=== PATIENT | female | born 1995 | race Two or more races ===

== ENCOUNTER 2021-12-24 01:14 | Inpatient (IN) | payer SELFPAY ==
[~2021-12-24] VITALS: Ht 167.6 cm; Wt 75.7 kg
[2021-12-24] MEDS ORDERED: DERMOPLAST 60ML BOTTLE TOP PRN (01:45)
[2021-12-24] MEDS ORDERED: WITCH HAZEL-GLYCERIN PAD TOP PRN (01:45)
[2021-12-24] MEDS ORDERED: PHISODERM TOP SOLN 240ML BTL TOP PRN (01:45)
[2021-12-24] MEDS ORDERED: IBUPROFEN 600 MG TAB PO PRN (02:00)
[2021-12-24] MEDS ORDERED: ONDANSETRON ODT 4 MG TAB PO PRN (02:00)
[2021-12-24] MEDS ORDERED: ACETAMINOPHEN 325 MG TAB PO PRN (02:00)
[2021-12-24] MEDS ORDERED: CARBOPROST TROMETHAMINE 250 MCG/1ML VIAL IM PRN (02:00)
[2021-12-24] MEDS ORDERED: miSOPROStol 100 mcg TAB PR PRN (02:00)
[2021-12-24] MEDS ORDERED: LACT. RINGERS/OXYTOCIN 20UNITS 1,000 ML IV ONE (02:00)
[2021-12-24] MEDS ORDERED: miSOPROStol 100 mcg TAB SL PRN (02:00)
[2021-12-24] MEDS ORDERED: METHYLERGONOVINE MALEATE 0.2 MG/ML AMP IM ONE (02:00)
[2021-12-24 02:29] LABS: Alcohol, Urine < 3.0 mg/dL (0-10); Amphetamine Screen, Urine POSITIVE (NEGATIVE); Barbiturate Scree,Urine NEGATIVE (NEGATIVE); Cannabinoid Screen, Urine NEGATIVE (NEGATIVE); Opiate Scree,Urine NEGATIVE (NEGATIVE); Phencyclidine Screen, Urine NEGATIVE (NEGATIVE)
[2021-12-24 02:36] LABS: Benzodiazephine Screen, Urine NEGATIVE (NEGATIVE); Cocaine Screen, Urine NEGATIVE (NEGATIVE)
[2021-12-24 02:51] LABS: Urine Bacteria NONE SEEN /hpf (None Seen); Urine Blood 2+ /uL (Negative); Urine Mucus FEW (None Seen); Urine WBC 2 /hpf (0 - 5)
[2021-12-24 02:59] LABS: Eosinophils # (auto) 0 10 ^3/uL (0-0.8)
[2021-12-24 03:01] LABS: Basophils # (auto) 0.1 10 ^3/uL (0-0.2); Basophils % (auto) 0.4 % (0.0-2.0); Eosinophils % (auto) 0.2 % (0.0-7.0); Hematocrit 25.9 % (36.0-46.0); Hemoglobin 7.7 g/dL (12.2-16.2); Lymphocytes # (auto) 1.2 10 ^3/uL (0.4-5.4); Mean Corpuscular Hemoglobin 20.1 pg (28.0-32.0); Mean Corpuscular Hgb Conc. 29.7 g/dL (32.0-36.0); Mean Corpuscular Volume 67.7 fL (80.0-100.0); Neutrophils # (auto) 14.3 10 ^3/uL (1.6-8.6); Neutrophils % (auto) 86.4 % (37.0-80.0); Nucleated Red Blood Cells % 0.6 %; Red Blood Cells 3.83 10^6/uL (4.0-5.20); White Blood Cell 16.5 10^3/uL (4.4-10.8)
[2021-12-24 03:13] LABS: Albumin 2.6 g/dL (3.4-5.0); BUN/Creatinine Ratio 22.6; Calcium 8.4 mg/dL (8.5-10.1)
[2021-12-24 03:14] LABS: Red Cell Distribution Width 22.2 % (11.8-14.3)
[2021-12-24 03:16] LABS: Bilirubin, Total 0.4 mg/dL (0.2-1.0); Total Protein 6.4 g/dL (6.4-8.2)
[2021-12-24 03:17] VITALS: BP 133/91
[2021-12-24 03:17] LABS: INR 0.92 (0.9-1.15); Partial Thromboplastin Time 24.5 sec (23.6-33.0)
[2021-12-24] MEDS ORDERED: ceFAZolin 1GM/50ML 50 ML IV SCH (03:30)
[2021-12-24] MEDS ORDERED: SODIUM FERR GLUC 62.5MG/5ML 125 MG in SODIUM CHL 0.9% 100 ML IV ONE (04:00)
[2021-12-24 04:50] VITALS: BP 118/66
[2021-12-25 08:06] LABS: Rubella Antibodies, IgG 1.98 index (Immune >0.99)
== END 2021-12-24 06:35 | disposition left against medical advice (07) | DRG 776 ==
LOC: LDRP 01:14
PROVIDERS: ADMIT Obstetrics & Gynecology; ATTEND Obstetrics & Gynecology
PROC: 10E0XZZ Delivery of Products of Conception, External Approach (ICD-10-PCS; principal; 2021-12-24)
PROC: 3E0DXGC Introduction of Other Therapeutic Substance into Mouth and Pharynx, External Approach (ICD-10-PCS; 2021-12-24)
DX: O99.325 Drug use complicating the puerperium (principal); F15.90 Other stimulant use, unspecified, uncomplicated; Z53.29 Procedure and treatment not carried out because of patient's decision for other reasons; O90.81 Anemia of the puerperium; Z20.822 Contact with and (suspected) exposure to COVID-19; Z91.410 Personal history of adult physical and sexual abuse
CPT/HCPCS: 36415; 80053; 80307; 81001; 85025; 85610; 85730; 86592; 86703; 86762; 86850; 86900; 86901; 87340; 87426; 96365; 96366; 96372; G0378; J0690

== ENCOUNTER 2023-01-26 10:23 | Inpatient (IN) | payer MEDICAID, OTHER ==
[~2023-01-26] VITALS: Ht 167.6 cm; Wt 68.0 kg
[2023-01-26] VITALS (7 sets, daily range): BP systolic 116–127; BP diastolic 63–76
[2023-01-26] MEDS ORDERED: LACTATED RINGER'S 1,000 ML IV SCH ×2 (10:30→11:00)
[2023-01-26] MEDS ORDERED: LIDOCAINE 2%HCL (LOCAL ANESTH.) INJ 20ML MDV IJ PRN ×2 (10:30→11:00)
[2023-01-26] MEDS ORDERED: DERMOPLAST 60ML BOTTLE TOP PRN ×2 (10:30→11:00)
[2023-01-26] MEDS ORDERED: PROMETHAZINE HCL 25 MG/ML 1ML IV PRN (10:30)
[2023-01-26] MEDS ORDERED: BUTORPHANOL TARTRATE 2 MG/1 ML VIAL IV PRN ×2 (10:30)
[2023-01-26] MEDS ORDERED: PHISODERM TOP SOLN 240ML BTL TOP PRN ×2 (10:30→11:00)
[2023-01-26] MEDS ORDERED: WITCH HAZEL-GLYCERIN PAD TOP PRN ×2 (10:30→11:00)
[2023-01-26] MEDS ORDERED: BETAMETHASONE ACET (30mg/5ml) 5ml Vial 6mg/ml IM STA (10:49)
[2023-01-26] MEDS ORDERED: CARBOPROST TROMETHAMINE 250 MCG/1ML VIAL IM ONE (11:00)
[2023-01-26] MEDS ORDERED: LACT. RINGERS/OXYTOCIN 20UNITS 500 ML IV ONE ×2 (11:00→11:30)
[2023-01-26] MEDS ORDERED: BETAMETHASONE ACET (30mg/5ml) 5ml Vial 6mg/ml IM ONE (11:00)
[2023-01-26] MEDS ORDERED: PENICILLIN G POT 5MIL/D5 50ML 50 ML IV ONE (11:00)
[2023-01-26] MEDS ORDERED: METHYLERGONOVINE MALEATE 0.2 MG/ML AMP IM ONE (11:00)
[2023-01-26] MEDS ORDERED: BETAMETHASONE ACET (30mg/5ml) 5ml Vial 6mg/ml ONE (11:02)
[2023-01-26 11:35] LABS: Basophils # (auto) 0 10 ^3/uL (0-0.2)
[2023-01-26 11:38] LABS: Basophils % (auto) 0.2 % (0.0-2.0); Eosinophils # (auto) 0.2 10 ^3/uL (0-0.8); Eosinophils % (auto) 2.1 % (0.0-7.0); Hematocrit 22.6 % (36.0-46.0); Lymphocytes # (auto) 2.1 10 ^3/uL (0.4-5.4); Lymphocytes % (auto) 17.4 % (10.0-50.0); Mean Corpuscular Hemoglobin 18.9 pg (28.0-32.0); Mean Corpuscular Volume 65.1 fL (80.0-100.0); Monocytes # (auto) 0.7 10 ^3/uL (0-1.3); Monocytes % (auto) 5.6 % (0.0-12.0); Neutrophils # (auto) 8.9 10 ^3/uL (1.6-8.6); Neutrophils % (auto) 74.7 % (37.0-80.0); Nucleated Red Blood Cells % 0.9 %; Red Blood Cells 3.48 10^6/uL (4.0-5.20); White Blood Cell 11.9 10^3/uL (4.4-10.8)
[2023-01-26 11:54] LABS: Albumin 2.5 g/dL (3.4-5.0); Calcium 8.4 mg/dL (8.5-10.1); Potassium 3.2 mmol/L (3.5-5.1)
[2023-01-26 11:56] LABS: BUN/Creatinine Ratio 16.3 (10.0-20.0); Bilirubin, Total 0.4 mg/dL (0.2-1.0); Total Protein 6.6 g/dL (6.4-8.2)
[2023-01-26] MEDS ORDERED: miSOPROStol 50 MCG per PRE-CUT 1/2 TAB SL ONE (12:15)
[2023-01-26 12:19] LABS: Red Cell Distribution Width 22.4 % (11.8-14.3)
[2023-01-26 12:23] LABS: Hemoglobin 6.6 g/dL (12.2-16.2)
[2023-01-26 12:28] LABS: INR 0.86 (0.9-1.15)
[2023-01-26 12:50] LABS: Urine Bacteria FEW /hpf (None Seen); Urine Blood Negative /uL (Negative); Urine Mucus FEW (None Seen); Urine Specific Gravity 1.025 (1.001-1.035); Urine WBC 2 /hpf (0 - 5)
[2023-01-26] MEDS ORDERED: ACETAMINOPHEN 325 MG TAB PO PRN (13:00)
[2023-01-26] MEDS ORDERED: IBUPROFEN 600 MG TAB PO PRN (13:00)
[2023-01-26 13:01] LABS: Alcohol, Urine < 3.0 mg/dL (0-10); Amphetamine Screen, Urine POSITIVE (NEGATIVE); Barbiturate Scree,Urine NEGATIVE (NEGATIVE); Benzodiazephine Screen, Urine NEGATIVE (NEGATIVE); Cannabinoid Screen, Urine POSITIVE (NEGATIVE); Cocaine Screen, Urine NEGATIVE (NEGATIVE)
[2023-01-26 13:07] LABS: Opiate Scree,Urine NEGATIVE (NEGATIVE); Phencyclidine Screen, Urine NEGATIVE (NEGATIVE)
[2023-01-27 03:35] VITALS: BP 120/82
[2023-01-27 07:05] VITALS: BP 117/73
[2023-01-27 07:07] LABS: Rubella Antibodies, IgG 1.75 index (Immune >0.99)
[2023-01-27 07:18] LABS: Basophils # (auto) 0 10 ^3/uL (0-0.2); Basophils % (auto) 0.1 % (0.0-2.0); Eosinophils # (auto) 0 10 ^3/uL (0-0.8); Lymphocytes # (auto) 1.4 10 ^3/uL (0.4-5.4); Monocytes # (auto) 0.7 10 ^3/uL (0-1.3)
[2023-01-27 07:21] LABS: Hematocrit 26.2 % (36.0-46.0); Hemoglobin 8.1 g/dL (12.2-16.2); Lymphocytes % (auto) 7.9 % (10.0-50.0); Mean Corpuscular Hemoglobin 20.2 pg (28.0-32.0); Mean Corpuscular Hgb Conc. 31.1 g/dL (32.0-36.0); Neutrophils # (auto) 16.1 10 ^3/uL (1.6-8.6); Nucleated Red Blood Cells % 0.8 %; Red Blood Cells 4.03 10^6/uL (4.0-5.20); White Blood Cell 18.3 10^3/uL (4.4-10.8)
[2023-01-27 07:22] LABS: Red Cell Distribution Width 22.3 % (11.8-14.3)
[2023-01-27 11:15] VITALS: BP 113/73
[2023-01-27 14:55] VITALS: BP 113/73
[2023-01-27] MEDS ORDERED: FERR-7 PO (17:03)
== END 2023-01-27 16:57 | disposition home or self-care (01) | DRG 560 ==
LOC: LDRP 10:23
PROVIDERS: ADMIT Obstetrics & Gynecology; ATTEND Obstetrics & Gynecology
PROC: 10E0XZZ Delivery of Products of Conception, External Approach (ICD-10-PCS; principal; 2023-01-26)
PROC: 30233N1 Transfusion of Nonautologous Red Blood Cells into Peripheral Vein, Percutaneous Approach (ICD-10-PCS; 2023-01-26)
DX: O99.324 Drug use complicating childbirth (principal); Z37.0 Single live birth; O60.14X0 Preterm labor third trimester with preterm delivery third trimester, not applicable or unspecified; O99.344 Other mental disorders complicating childbirth; O98.12 Syphilis complicating childbirth; F15.90 Other stimulant use, unspecified, uncomplicated; O69.81X0 Labor and delivery complicated by cord around neck, without compression, not applicable or unspecified; F32.A Depression, unspecified; O99.02 Anemia complicating childbirth; Z3A.35 35 weeks gestation of pregnancy; Z59.00 Homelessness unspecified; Z20.822 Contact with and (suspected) exposure to COVID-19
CPT/HCPCS: 36415; 36430; 59409; 76805; 80053; 80307; 81001; 84132; 85025; 85610; 85730; 86592; 86703; 86762; 86850; 86900; 86901; 86920; 87340; 87426; 94760; 96360; 96361; 96365; 96366; 96372; G0378; J2540; J2590

== ENCOUNTER 2023-05-17 11:22 | Emergency (ER) | payer OTHER ==
[~2023-05-17] VITALS: Ht 167.6 cm; Wt 57.5 kg
[~2023-05-17 11:22] MED LIST: CEPH500C PO; FERR-7 PO; IBUP-1456 PO; SULF400T11 PO
[2023-05-17 11:26] VITALS: BP 121/72; PULSE 108; RESP 20; O2SAT 98
== END 2023-05-17 15:50 | disposition left against medical advice (07) ==
LOC: ER 11:22
DX: S81.812D Laceration without foreign body, left lower leg, subsequent encounter (principal); S81.811D Laceration without foreign body, right lower leg, subsequent encounter; Z53.21 Procedure and treatment not carried out due to patient leaving prior to being seen by health care provider; X58.XXXD Exposure to other specified factors, subsequent encounter